=== PATIENT | female | born 1955 | race African-American/Black ===

== ENCOUNTER 2016-10-05 11:56 | Emergency (ER) | payer MEDICARE, MEDICAID ==
[~2016-10-05] VITALS: Ht 162.6 cm; Wt 79.0 kg
[2016-10-05] MEDS ORDERED: HYDR-523 PO (12:09)
[2016-10-05] MEDS ORDERED: INSULIN (12:09)
[2016-10-05] MEDS ORDERED: METF500T4 PO (12:09)
[2016-10-05] MEDS ORDERED: CYM20 PO (12:09)
[2016-10-05] MEDS ORDERED: HYDROCODONE/ACETAMINOPHEN 5/325MG TABLET PO ONE (14:30)
[2016-10-05 17:09] VITALS: BP 155/73
== END 2016-10-05 17:13 | disposition home or self-care (01) ==
LOC: ER 13:00
DX: S42.292A Other displaced fracture of upper end of left humerus, initial encounter for closed fracture (principal); H54.0 Blindness, both eyes; I10 Essential (primary) hypertension; E11.9 Type 2 diabetes mellitus without complications; Z98.84 Bariatric surgery status; Z79.4 Long term (current) use of insulin; W01.0XXA Fall on same level from slipping, tripping and stumbling without subsequent striking against object, initial encounter; Y93.89 Activity, other specified; Y99.8 Other external cause status; Y92.89 Other specified places as the place of occurrence of the external cause
CPT/HCPCS: 73030; 73060; 73080; 99284; A4565

== ENCOUNTER 2017-01-12 16:56 | Inpatient (IN) | payer MEDICARE, MEDICAID ==
[~2017-01-12] VITALS: Ht 165.1 cm; Wt 66.7 kg
[~2017-01-12 16:56] MED LIST: CYM20 PO; HYDR-523 PO; INSULIN; METF500T4 PO
[2017-01-12] MEDS ORDERED: SODIUM CHLORIDE 0.9% 1,000 ML IV ONE (17:38)
[2017-01-12 18:03] LABS: BASOPHILS % 0.2 % (0.0-2.0); EOSINOPHILS % 0.2 % (0.0-5.0); HEMATOCRIT. 38.2 % (36.0-48.0); HEMOGLOBIN. 12.8 g/dL (12.0-16.0); LYMPHOCYTES % 14.8 % (20.0-50.0); MEAN CORPUSCULAR HEMOGLOBIN 28.4 pg (28.0-32.0); MEAN CORPUSCULAR VOLUME 84.8 fL (81.0-99.0); MONOCYTES % 3.3 % (2.0-8.0); NEUTROPHILS % 81.5 % (40.0-76.0); PLATELET 452 x1000/uL (130-400); RED CELL DISTRIBUTION WIDTH 13.8 % (11.6-14.6)
[2017-01-12 18:10] LABS: PROTHROMBIN TIME 10.4 sec
[2017-01-12 18:20] LABS: BETA HYDROXYBUTYRATE 0.3 mMol/L (0.0-0.3); CARBON DIOXIDE 26 mEq/L (21-32); CHLORIDE 91 mEq/L (98-107); TROPONIN I 0.13 ng/mL (0.00-0.04)
[2017-01-12] MEDS ORDERED: ASPIRIN 81MG TABLET PO ONE (18:45)
[2017-01-12] MEDS ORDERED: POTASSIUM CHLORIDE 20MEQ TABLET SR PO ONE (18:45)
[2017-01-12] MEDS ORDERED: HYDROCODONE/ACETAMINOPHEN 5/325MG TABLET PO ONE (19:00)
[2017-01-12] MEDS ORDERED: POTASSIUM CHLORIDE 20MEQ TABLET SR PO NR (22:00)
[2017-01-12] MEDS ORDERED: ZOLPIDEM TARTRATE 5MG TABLET PO PRN (22:00)
[2017-01-12] MEDS ORDERED: DEXTROSE 50% WATER 50ML SYRINGE IV PRN (22:00)
[2017-01-12] MEDS: HYDROCODONE/ACETAMINOPHEN 10/325MG TABLET PO PRN (22:17)
[2017-01-12] MEDS: SODIUM CHLORIDE 0.9% 1,000 ML IV SCH (22:18)
[2017-01-12] MEDS ORDERED: IBUP100O15 PO (22:36)
[2017-01-12] MEDS ORDERED: INSULIN LISPRO 100 UNITS/ML SUBCUT NR (23:00)
[2017-01-12 23:31] VITALS: BP 155/103
[2017-01-13] VITALS: BP 132/65
[2017-01-13] MEDS ORDERED: ZOLPIDEM TARTRATE 5MG TABLET PO PRN ×2 (01:15→21:00)
[2017-01-13] MEDS: HYDROCODONE/ACETAMINOPHEN 10/325MG TABLET PO PRN ×5 (01:29→23:34)
[2017-01-13] MEDS ORDERED: ZOLPIDEM TARTRATE 5MG TABLET PO NR (01:30)
[2017-01-13 04:00] VITALS: BP 139/62
[2017-01-13] MEDS: BLOOD SUGAR DIAGNOSTIC STRIP TEST SCH ×4 (06:20→21:28)
[2017-01-13 06:36] LABS: BASOPHILS % 0.6 % (0.0-2.0); EOSINOPHILS % 0.6 % (0.0-5.0); HEMATOCRIT. 32.5 % (36.0-48.0); HEMOGLOBIN. 11.1 g/dL (12.0-16.0); LYMPHOCYTES % 29.7 % (20.0-50.0); MEAN CORPUSCULAR VOLUME 84.8 fL (81.0-99.0); MEAN PLATELET VOLUME 7.9 fl (7.4-10.4); MONOCYTES % 6.3 % (2.0-8.0); NEUTROPHILS % 62.8 % (40.0-76.0); PLATELET 405 x1000/uL (130-400); RED BLOOD CELL COUNT 3.83 mill/uL (4.2-5.4); RED CELL DISTRIBUTION WIDTH 13.6 % (11.6-14.6)
[2017-01-13 07:13] LABS: TROPONIN I 0.11 ng/mL (0.00-0.04)
[2017-01-13] MEDS: INSULIN LISPRO 100 UNITS/ML SUBCUT SCH ×4 (07:50→21:31)
[2017-01-13 08:00] VITALS: BP 142/69
[2017-01-13] MEDS: POTASSIUM CHLORIDE 20MEQ TABLET SR PO SCH ×2 (10:20→18:11)
[2017-01-13] MEDS: LOSARTAN POTASSIUM 100 MG TABLET PO SCH (10:20)
[2017-01-13] MEDS: DULOXETINE HCL 60MG DR CAPSULE PO SCH (10:21)
[2017-01-13] MEDS: AMLODIPINE 10MG TABLET PO SCH (10:21)
[2017-01-13 12:00] VITALS: BP 124/81
[2017-01-13] MEDS: MECLIZINE 25MG TABLET PO SCH ×2 (15:28→21:30)
[2017-01-13 16:00] VITALS: BP 102/57
[2017-01-13] MEDS: SODIUM CHLORIDE 0.9% 1,000 ML IV SCH (18:00)
[2017-01-13 20:00] VITALS: BP 103/59
[2017-01-13 21:05] LABS: VITAMIN B12 SERUM 777 pg/mL (211-911)
[2017-01-13] MEDS: INSULIN DETEMIR UD 100 UNITS/ML SYR SUBCUT SCH (21:32)
[2017-01-14] VITALS: BP 103/61
[2017-01-14 04:00] VITALS: BP 130/66
[2017-01-14] MEDS: MECLIZINE 25MG TABLET PO SCH ×3 (05:13→21:48)
[2017-01-14] MEDS: HYDROCODONE/ACETAMINOPHEN 10/325MG TABLET PO PRN (05:13)
[2017-01-14] MEDS: BLOOD SUGAR DIAGNOSTIC STRIP TEST SCH ×4 (06:20→21:00)
[2017-01-14 07:01] LABS: CARBON DIOXIDE 22 mEq/L (21-32); CHLORIDE 105 mEq/L (98-107)
[2017-01-14 07:07] LABS: BASOPHILS % 0.8 % (0.0-2.0); EOSINOPHILS % 0.4 % (0.0-5.0); HEMATOCRIT. 30.4 % (36.0-48.0); HEMOGLOBIN. 10.3 g/dL (12.0-16.0); LYMPHOCYTES % 33.2 % (20.0-50.0); MEAN CORPUSCULAR HEMOGLOBIN 28.8 pg (28.0-32.0); MEAN CORPUSCULAR VOLUME 84.9 fL (81.0-99.0); MEAN PLATELET VOLUME 7.8 fl (7.4-10.4); MONOCYTES % 8.1 % (2.0-8.0); NEUTROPHILS % 57.5 % (40.0-76.0); PLATELET 399 x1000/uL (130-400); RED BLOOD CELL COUNT 3.58 mill/uL (4.2-5.4); RED CELL DISTRIBUTION WIDTH 13.9 % (11.6-14.6)
[2017-01-14] MEDS: INSULIN LISPRO 100 UNITS/ML SUBCUT SCH ×4 (07:50→21:48)
[2017-01-14 08:00] VITALS: BP 124/72
[2017-01-14] MEDS: POTASSIUM CHLORIDE 20MEQ TABLET SR PO SCH ×2 (09:14→18:00)
[2017-01-14] MEDS: AMLODIPINE 10MG TABLET PO SCH (09:15)
[2017-01-14] MEDS: DULOXETINE HCL 60MG DR CAPSULE PO SCH (09:15)
[2017-01-14] MEDS: LOSARTAN POTASSIUM 100 MG TABLET PO SCH (09:15)
[2017-01-14] MEDS ORDERED: LORAZEPAM 1MG TABLET PO SCH ×2 (11:00→11:15)
[2017-01-14] MEDS ORDERED: DIATR MEGLU/DIATRIZOATE SOLN 30ML PO SCH (11:15)
[2017-01-14] MEDS ORDERED: LORAZEPAM 2MG/ML CPJ IV SCH (11:35)
[2017-01-14 12:00] VITALS: BP 126/64
[2017-01-14] MEDS: SODIUM CHLORIDE 0.9% 1,000 ML IV SCH (14:00)
[2017-01-14 16:00] VITALS: BP 90/56
[2017-01-14 20:40] VITALS: BP 105/57
[2017-01-14] MEDS: INSULIN DETEMIR UD 100 UNITS/ML SYR SUBCUT SCH (21:47)
[2017-01-14] MEDS: BRIMONIDINE 0.15% EACHEYE SCH (21:48)
[2017-01-14] MEDS: PREDNISOLONE ACETATE 1% OPHTH DROPS 1ML BOTHEYE SCH (21:49)
[2017-01-14] MEDS: DORZOLAM/TIMOLOL 2.23/0.68% OPHTH DROPS 10ML BOTHEYE SCH (21:49)
[2017-01-15 01:07] VITALS: BP 100/62
[2017-01-15] MEDS: HYDROCODONE/ACETAMINOPHEN 10/325MG TABLET PO PRN (01:12)
[2017-01-15 04:00] VITALS: BP 97/48
[2017-01-15] MEDS: MECLIZINE 25MG TABLET PO SCH ×2 (05:16→13:26)
[2017-01-15] MEDS: INSULIN LISPRO 100 UNITS/ML SUBCUT SCH ×2 (06:44→13:24)
[2017-01-15 07:18] LABS: HEMATOCRIT 31.9 % (36.0-48.0); HEMOGLOBIN 10.7 g/dL (12.0-16.0); MEAN CORPUSCULAR HEMOGLOBIN 28.8 pg (28.0-32.0); MEAN CORPUSCULAR VOLUME 85.8 fL (81.0-99.0); PLATELET 401 x1000/uL (130-400); RED BLOOD CELL COUNT 3.72 mill/uL (4.2-5.4); RED CELL DISTRIBUTION WIDTH 14.3 % (11.6-14.6)
[2017-01-15] MEDS: BLOOD SUGAR DIAGNOSTIC STRIP TEST SCH ×2 (07:20→12:20)
[2017-01-15 07:44] LABS: CARBON DIOXIDE 20 mEq/L (21-32); CHLORIDE 107 mEq/L (98-107)
[2017-01-15 07:51] LABS: TROPONIN I 0.07 ng/mL (0.00-0.04)
[2017-01-15 08:05] VITALS: BP 99/61
[2017-01-15] MEDS: DORZOLAM/TIMOLOL 2.23/0.68% OPHTH DROPS 10ML BOTHEYE SCH (08:40)
[2017-01-15] MEDS: BRIMONIDINE 0.15% EACHEYE SCH (08:40)
[2017-01-15] MEDS: PREDNISOLONE ACETATE 1% OPHTH DROPS 1ML BOTHEYE SCH (08:40)
[2017-01-15] MEDS: DULOXETINE HCL 60MG DR CAPSULE PO SCH (08:41)
[2017-01-15] MEDS: POTASSIUM CHLORIDE 20MEQ TABLET SR PO SCH (08:41)
[2017-01-15] MEDS: AMLODIPINE 10MG TABLET PO SCH (08:42)
[2017-01-15] MEDS: LOSARTAN POTASSIUM 100 MG TABLET PO SCH (08:42)
[2017-01-15] MEDS ORDERED: MAGNESIUM/ALUMINUM HYDROXIDE/SIMETHICONE 30ML UDC PO NR (10:54)
[2017-01-15] MEDS ORDERED: POTASSIUM CHLORIDE 20MEQ TABLET SR PO NR (10:54)
[2017-01-15 12:00] VITALS: BP 120/79
== END 2017-01-15 14:00 | disposition home health service (06) | DRG 640 ==
LOC: ER 17:23 → 6WST 18:46 → EDBEDREQ 18:49 → ENRESERV 19:27
PROVIDERS: ADMIT Internal Medicine; ATTEND Internal Medicine
DX: E87.1 Hypo-osmolality and hyponatremia (principal); N17.0 Acute kidney failure with tubular necrosis; E87.6 Hypokalemia; E11.65 Type 2 diabetes mellitus with hyperglycemia; E86.9 Volume depletion, unspecified; H54.0 Blindness, both eyes; I10 Essential (primary) hypertension; R63.4 Abnormal weight loss; W18.30XA Fall on same level, unspecified, initial encounter; R29.6 Repeated falls; Z60.2 Problems related to living alone; R62.7 Adult failure to thrive; H81.10 Benign paroxysmal vertigo, unspecified ear; Z98.84 Bariatric surgery status; Y93.89 Activity, other specified; Y92.89 Other specified places as the place of occurrence of the external cause; Y99.8 Other external cause status; Z68.24 Body mass index [BMI] 24.0-24.9, adult; Z79.84 Long term (current) use of oral hypoglycemic drugs; Z79.4 Long term (current) use of insulin; Z79.899 Other long term (current) drug therapy; E86.0 Dehydration; S09.91XA Unspecified injury of ear, initial encounter
CPT/HCPCS: 36415; 70450; 70551; 71010; 72141; 73030; 74150; 76770; 80048; 80053; 82010; 82040; 82607; 82962; 83036; 83735; 83880; 84443; 84484; 85025; 85027; 85610; 85651; 93005; 93306; 96360; 96361; 97116; 97162; 99291; C1893; J1815; J2060; J7030; J8597; Q9963

== ENCOUNTER 2017-04-02 15:07 | Inpatient (IN) | payer MEDICARE, MEDICAID ==
[~2017-04-02] VITALS: Ht 170.2 cm; Wt 54.4 kg
[~2017-04-02 15:07] MED LIST changes: +IBUP100O19 PO
[2017-04-02] MEDS ORDERED: SODIUM CHLORIDE 0.9% 500 ML IV ONE (15:30)
[2017-04-02 16:11] LABS: PARTIAL THROMBOPLASTIN TIME 27.4 sec (23.4-31.0); PROTHROMBIN TIME 10.5 sec (9.4-11.6)
[2017-04-02 16:12] LABS: BASOPHILS % 0.3 % (0.0-2.0); HEMATOCRIT. 31.7 % (36.0-48.0); HEMOGLOBIN. 10.8 g/dL (12.0-16.0); LYMPHOCYTES % 11.2 % (20.0-50.0); MEAN CORPUSCULAR VOLUME 87.9 fL (81.0-99.0); MEAN PLATELET VOLUME 7.8 fl (7.4-10.4); NEUTROPHILS % 84.5 % (40.0-76.0); PLATELET 514 x1000/uL (130-400); RED BLOOD CELL COUNT 3.61 mill/uL (4.2-5.4); RED CELL DISTRIBUTION WIDTH 15.9 % (11.6-14.6)
[2017-04-02 16:16] LABS: CARBON DIOXIDE 15 mEq/L (21-32); CHLORIDE 97 mEq/L (98-107)
[2017-04-02 16:18] LABS: CREATINE KINASE MB FRACTION 6.7 ng/mL (0.5-3.6); TROPONIN I 0.07 ng/mL (0.00-0.04)
[2017-04-02] MEDS ORDERED: POTASSIUM CHLORIDE 20MEQ/PACKET PO ONE (17:30)
[2017-04-02] MEDS ORDERED: KCL 10MEQ/50ML PREMIX 50 ML IV ONE (17:30)
[2017-04-02 18:00] LABS: CREATINE KINASE 192 IU/L (26-192)
[2017-04-02 20:45] VITALS: BP 137/65
[2017-04-02 22:00] VITALS: BP 137/65
[2017-04-02] MEDS ORDERED: ACETAMINOPHEN 325MG TABLET PO PRN (23:15)
[2017-04-02] MEDS ORDERED: DEXTROSE 50% WATER 50ML SYRINGE IV PRN (23:15)
[2017-04-02] MEDS: INSULIN LISPRO 100 UNITS/ML SUBCUT SCH (23:59)
[2017-04-03] VITALS: BP 133/58
[2017-04-03] MEDS: SODIUM CHLORIDE 0.45% 1,000 ML IV SCH ×2 (00:22→15:55)
[2017-04-03 04:00] VITALS: BP 137/56
[2017-04-03] MEDS: BLOOD SUGAR DIAGNOSTIC STRIP TEST SCH ×4 (06:56→20:37)
[2017-04-03 08:12] VITALS: BP 125/56
[2017-04-03] MEDS: ENOXAPARIN 30MG/0.3ML SYR SUBCUT SCH (08:38)
[2017-04-03] MEDS: INSULIN LISPRO 100 UNITS/ML SUBCUT SCH ×4 (08:40→20:37)
[2017-04-03 09:01] LABS: BASOPHILS % 0.4 % (0.0-2.0); HEMATOCRIT. 32.5 % (36.0-48.0); HEMOGLOBIN. 10.8 g/dL (12.0-16.0); LYMPHOCYTES % 15.7 % (20.0-50.0); MEAN CORPUSCULAR HEMOGLOBIN 29.6 pg (28.0-32.0); MEAN CORPUSCULAR VOLUME 89.2 fL (81.0-99.0); MEAN PLATELET VOLUME 8.1 fl (7.4-10.4); MONOCYTES % 5.2 % (2.0-8.0); NEUTROPHILS % 78.7 % (40.0-76.0); PLATELET 444 x1000/uL (130-400); RED BLOOD CELL COUNT 3.64 mill/uL (4.2-5.4); RED CELL DISTRIBUTION WIDTH 16.6 % (11.6-14.6)
[2017-04-03] MEDS ORDERED: ACETAMINOPHEN 325MG TABLET PO PRN (11:30)
[2017-04-03 12:00] VITALS: BP 113/49
[2017-04-03] MEDS: POTASSIUM CHLORIDE 20MEQ TABLET SR PO SCH ×2 (13:54→17:09)
[2017-04-03] MEDS: HYDROCODONE/ACETAMINOPHEN 10/325MG TABLET PO PRN ×2 (14:05→20:36)
[2017-04-03 16:00] VITALS: BP 90/48
[2017-04-03 20:00] VITALS: BP 119/52
[2017-04-04] VITALS: BP 137/64
[2017-04-04 04:00] VITALS: BP 111/50
[2017-04-04] MEDS: BLOOD SUGAR DIAGNOSTIC STRIP TEST SCH ×4 (06:40→21:48)
[2017-04-04 08:00] VITALS: BP 127/56
[2017-04-04 08:18] LABS: CLARITY URINE CLOUDY (CLEAR); COLOR URINE DARK YELLOW (YELLOW); GLUCOSE URINE NEGATIVE (NEGATIVE); KETONES URINE 1+ (NEGATIVE); LEUKOCYTE ESTERASE URINE 2+ (NEGATIVE); NITRITE URINE NEGATIVE (NEGATIVE); OCCULT BLOOD URINE 1+ (NEGATIVE); PROTEIN URINE 2+ (NEGATIVE); SPECIFIC GRAVITY URINE 1.021 (1.005-1.030); UROBILINOGEN URINE 0.2 E.U./dL (0.2-1.0)
[2017-04-04] MEDS: SODIUM CHLORIDE 0.45% 1,000 ML IV SCH (08:35)
[2017-04-04] MEDS: ENOXAPARIN 30MG/0.3ML SYR SUBCUT SCH (08:37)
[2017-04-04] MEDS: INSULIN LISPRO 100 UNITS/ML SUBCUT SCH ×4 (08:43→21:00)
[2017-04-04 08:59] LABS: *AMPHETAMINES SCREEN URINE NEGATIVE (NEGATIVE); *BARBITURATES SCREEN URINE NEGATIVE (NEGATIVE); *BENZODIAZEPINES SCREEN URINE NEGATIVE (NEGATIVE); *COCAINE SCREEN URINE NEGATIVE (NEGATIVE); CANNABINOID URINE SCREEN NEGATIVE (NEGATIVE); METHADONE URINE SCREEN NEGATIVE (NEGATIVE); OPIATES URINE SCREEN PRESUMTIVE POSITIVE (NEGATIVE); PHENCYCLIDINE URINE SCREEN NEGATIVE (NEGATIVE)
[2017-04-04 12:00] VITALS: BP 127/61
[2017-04-04] MEDS: HYDROCODONE/ACETAMINOPHEN 10/325MG TABLET PO PRN ×2 (13:12→21:52)
[2017-04-04] MEDS ORDERED: POTASSIUM CHLORIDE 20MEQ TABLET SR PO SCH (13:15)
[2017-04-04] MEDS ORDERED: LEVOFLOXACIN 500MG PREMIX 100 ML IV SCH (14:00)
[2017-04-04] MEDS: POTASSIUM CHLORIDE 20MEQ TABLET SR PO SCH ×3 (14:08→21:48)
[2017-04-04 16:00] VITALS: BP 104/43
[2017-04-04 20:00] VITALS: BP 113/59
[2017-04-05] VITALS: BP 130/61
[2017-04-05] MEDS: POTASSIUM CHLORIDE 20MEQ TABLET SR PO SCH (01:36)
[2017-04-05 04:00] VITALS: BP 134/70
[2017-04-05] MEDS: SODIUM CHLORIDE 0.45% 1,000 ML IV SCH ×2 (05:42→17:55)
[2017-04-05] MEDS: BLOOD SUGAR DIAGNOSTIC STRIP TEST SCH ×4 (07:28→22:21)
[2017-04-05] MEDS: INSULIN LISPRO 100 UNITS/ML SUBCUT SCH ×4 (07:29→22:20)
[2017-04-05 08:00] VITALS: BP 107/60
[2017-04-05] MEDS: ENOXAPARIN 30MG/0.3ML SYR SUBCUT SCH (08:44)
[2017-04-05 10:21] LABS: CARBON DIOXIDE 21 mEq/L (21-32); CHLORIDE 106 mEq/L (98-107)
[2017-04-05 12:00] VITALS: BP 132/68
[2017-04-05] MEDS ORDERED: POTASSIUM CHLORIDE 20MEQ TABLET SR PO SCH ×2 (12:35→17:00)
[2017-04-05 16:00] VITALS: BP 135/60
[2017-04-05] MEDS: LEVOFLOXACIN 500MG PREMIX 100 ML IV SCH (16:27)
[2017-04-05] MEDS: HYDROCODONE/ACETAMINOPHEN 10/325MG TABLET PO PRN ×2 (16:28→23:40)
[2017-04-05 20:00] VITALS: BP 125/65
[2017-04-06] VITALS: BP 147/87
[2017-04-06 04:00] VITALS: BP 128/86
[2017-04-06] MEDS: BLOOD SUGAR DIAGNOSTIC STRIP TEST SCH ×4 (07:12→20:10)
[2017-04-06 07:26] LABS: BASOPHILS % 0.9 % (0.0-2.0); EOSINOPHILS % 0.6 % (0.0-5.0); HEMATOCRIT. 27.3 % (36.0-48.0); HEMOGLOBIN. 9.3 g/dL (12.0-16.0); LYMPHOCYTES % 42.3 % (20.0-50.0); MEAN CORPUSCULAR HEMOGLOBIN 30.2 pg (28.0-32.0); MEAN CORPUSCULAR VOLUME 88.6 fL (81.0-99.0); MEAN PLATELET VOLUME 7.5 fl (7.4-10.4); MONOCYTES % 6.5 % (2.0-8.0); NEUTROPHILS % 49.7 % (40.0-76.0); PLATELET 388 x1000/uL (130-400); RED BLOOD CELL COUNT 3.08 mill/uL (4.2-5.4)
[2017-04-06 07:44] LABS: CARBON DIOXIDE 19 mEq/L (21-32); CHLORIDE 110 mEq/L (98-107)
[2017-04-06 08:00] VITALS: BP 130/64
[2017-04-06] MEDS: INSULIN LISPRO 100 UNITS/ML SUBCUT SCH ×4 (08:17→20:14)
[2017-04-06] MEDS: ENOXAPARIN 40MG/0.4ML SYR SUBCUT SCH (08:17)
[2017-04-06] MEDS ORDERED: POTASSIUM CHLORIDE 20MEQ TABLET SR PO SCH ×3 (09:45→17:00)
[2017-04-06] MEDS: HYDROCODONE/ACETAMINOPHEN 10/325MG TABLET PO PRN ×2 (10:43→20:13)
[2017-04-06] MEDS: SODIUM CHLORIDE 0.45% 1,000 ML IV SCH (10:45)
[2017-04-06 12:00] VITALS: BP 110/63
[2017-04-06] MEDS: LACTULOSE 20G/30ML UDC PO SCH ×2 (13:41→16:50)
[2017-04-06 16:00] VITALS: BP 130/69
[2017-04-06] MEDS: LEVOFLOXACIN 500MG PREMIX 100 ML IV SCH (16:50)
[2017-04-06] MEDS: DOCUSATE SODIUM 100MG CAPSULE PO SCH (16:51)
[2017-04-06 20:00] VITALS: BP 127/69
[2017-04-06] MEDS ORDERED: POLYETHYLENE GLYCOL 3350 (17GM) 1 DOSE PACK PO SCH (21:00)
[2017-04-07] VITALS: BP 144/64
[2017-04-07] MEDS: SODIUM CHLORIDE 0.45% 1,000 ML IV SCH (03:42)
[2017-04-07 04:00] VITALS: BP 147/63
[2017-04-07] MEDS: BLOOD SUGAR DIAGNOSTIC STRIP TEST SCH ×3 (07:40→17:32)
[2017-04-07 08:00] VITALS: BP 120/58
[2017-04-07] MEDS: INSULIN LISPRO 100 UNITS/ML SUBCUT SCH ×3 (08:10→18:25)
[2017-04-07] MEDS: ENOXAPARIN 40MG/0.4ML SYR SUBCUT SCH (08:33)
[2017-04-07] MEDS: HYDROCODONE/ACETAMINOPHEN 10/325MG TABLET PO PRN ×2 (08:34→14:40)
[2017-04-07] MEDS: DOCUSATE SODIUM 100MG CAPSULE PO SCH ×2 (08:37→16:45)
[2017-04-07 12:00] VITALS: BP 138/69
[2017-04-07 12:35] LABS: BASOPHILS % 0.8 % (0.0-2.0); EOSINOPHILS % 0.8 % (0.0-5.0); HEMATOCRIT. 28.8 % (36.0-48.0); HEMOGLOBIN. 9.5 g/dL (12.0-16.0); LYMPHOCYTES % 40.5 % (20.0-50.0); MEAN CORPUSCULAR HEMOGLOBIN 29.6 pg (28.0-32.0); MEAN CORPUSCULAR VOLUME 89.8 fL (81.0-99.0); MEAN PLATELET VOLUME 7.7 fl (7.4-10.4); MONOCYTES % 6.8 % (2.0-8.0); NEUTROPHILS % 51.1 % (40.0-76.0); PLATELET 374 x1000/uL (130-400); RED BLOOD CELL COUNT 3.21 mill/uL (4.2-5.4); RED CELL DISTRIBUTION WIDTH 16.1 % (11.6-14.6)
[2017-04-07 12:53] LABS: CARBON DIOXIDE 20 mEq/L (21-32); CHLORIDE 109 mEq/L (98-107)
[2017-04-07 16:00] VITALS: BP 150/66
[2017-04-07] MEDS: LEVOFLOXACIN 500MG PREMIX 100 ML IV SCH (16:44)
[2017-04-07 17:40] VITALS: BP 150/66
[2017-04-08] MEDS ORDERED: LEVOFLOXACIN 500MG TABLET PO SCH (11:00)
== END 2017-04-07 18:50 | DRG 871 ==
LOC: ER 15:07 → 7WST 18:04 → ENRESERV 19:11
PROVIDERS: ADMIT Internal Medicine; ATTEND Internal Medicine
DX: A41.9 Sepsis, unspecified organism (principal); J15.1 Pneumonia due to Pseudomonas; N17.9 Acute kidney failure, unspecified; E11.649 Type 2 diabetes mellitus with hypoglycemia without coma; E86.0 Dehydration; J44.0 Chronic obstructive pulmonary disease with (acute) lower respiratory infection; N39.0 Urinary tract infection, site not specified; Z68.1 Body mass index [BMI] 19.9 or less, adult; G62.9 Polyneuropathy, unspecified; E87.6 Hypokalemia; B96.20 Unspecified Escherichia coli [E. coli] as the cause of diseases classified elsewhere; D64.9 Anemia, unspecified; E66.9 Obesity, unspecified; F32.9 Major depressive disorder, single episode, unspecified; F41.9 Anxiety disorder, unspecified; G89.4 Chronic pain syndrome; H40.9 Unspecified glaucoma; H54.8 Legal blindness, as defined in USA; I10 Essential (primary) hypertension; K59.00 Constipation, unspecified; M48.06 Spinal stenosis, lumbar region; R29.6 Repeated falls; R32 Unspecified urinary incontinence; M47.9 Spondylosis, unspecified; R26.9 Unspecified abnormalities of gait and mobility; R53.81 Other malaise; Z98.1 Arthrodesis status; Z79.891 Long term (current) use of opiate analgesic
CPT/HCPCS: 36415; 70450; 71010; 72141; 72146; 72148; 80048; 80053; 80305; 81001; 82550; 82553; 82962; 83036; 83735; 83880; 84484; 85025; 85610; 85730; 87077; 87086; 87186; 93005; 96365; 97110; 97116; 97162; 97530; 99285; J1650; J1815; J1956; J3480; J7040

== ENCOUNTER 2017-04-07 20:23 | Inpatient (IN) | payer MEDICARE, MEDICAID ==
[~2017-04-07] VITALS: Ht 170.2 cm; Wt 65.5 kg
[2017-04-07 20:00] VITALS: BP 154/62
[2017-04-07] MEDS ORDERED: DEXTROSE 50% WATER 50ML SYRINGE IV PRN (21:00)
[2017-04-07] MEDS ORDERED: ACETAMINOPHEN 500MG TABLET PO PRN (21:00)
[2017-04-07] MEDS: BLOOD SUGAR DIAGNOSTIC STRIP TEST SCH (21:00)
[2017-04-07] MEDS: HYDROCODONE/ACETAMINOPHEN 10/325MG TABLET PO PRN (21:22)
[2017-04-07] MEDS: POLYETHYLENE GLYCOL 3350 (17GM) 1 DOSE PACK PO SCH (21:30)
[2017-04-07] MEDS: SODIUM CHLORIDE 0.45% 1,000 ML IV SCH (22:18)
[2017-04-07] MEDS: INSULIN LISPRO 100 UNITS/ML SUBCUT SCH (22:41)
[2017-04-08] MEDS: HYDROCODONE/ACETAMINOPHEN 10/325MG TABLET PO PRN ×4 (03:43→22:56)
[2017-04-08] MEDS: BLOOD SUGAR DIAGNOSTIC STRIP TEST SCH ×4 (06:08→21:02)
[2017-04-08] MEDS: INSULIN LISPRO 100 UNITS/ML SUBCUT SCH ×4 (06:36→21:00)
[2017-04-08 08:00] VITALS: BP 166/68
[2017-04-08 08:09] LABS: BASOPHILS % 0.9 % (0.0-2.0); EOSINOPHILS % 0.9 % (0.0-5.0); HEMATOCRIT. 28.1 % (36.0-48.0); HEMOGLOBIN. 9.5 g/dL (12.0-16.0); LYMPHOCYTES % 42.8 % (20.0-50.0); MEAN CORPUSCULAR HEMOGLOBIN 29.9 pg (28.0-32.0); MEAN CORPUSCULAR VOLUME 88.1 fL (81.0-99.0); MEAN PLATELET VOLUME 7.6 fl (7.4-10.4); MONOCYTES % 7.8 % (2.0-8.0); NEUTROPHILS % 47.6 % (40.0-76.0); PLATELET 345 x1000/uL (130-400); RED BLOOD CELL COUNT 3.19 mill/uL (4.2-5.4); RED CELL DISTRIBUTION WIDTH 15.9 % (11.6-14.6)
[2017-04-08 08:31] LABS: CARBON DIOXIDE 19 mEq/L (21-32); CHLORIDE 112 mEq/L (98-107)
[2017-04-08 08:34] LABS: PREALBUMIN 16.3 mg/dL (20.0-40.0)
[2017-04-08] MEDS: ENOXAPARIN 40MG/0.4ML SYR SUBCUT SCH (08:35)
[2017-04-08] MEDS: DOCUSATE SODIUM 100MG CAPSULE PO SCH ×2 (08:35→17:15)
[2017-04-08] MEDS ORDERED: ENOXAPARIN 40MG/0.4ML SYR SUBCUT SCH (09:00)
[2017-04-08] MEDS ORDERED: POTASSIUM CHLORIDE 20MEQ TABLET SR PO ONE (09:30)
[2017-04-08 10:00] VITALS: BP 134/74
[2017-04-08] MEDS: LACTULOSE 20G/30ML UDC PO SCH ×3 (10:04→17:00)
[2017-04-08] MEDS: POTASSIUM CHLORIDE 20MEQ TABLET SR PO SCH (10:04)
[2017-04-08] MEDS: LIDOCAINE 5% PATCH TOP SCH (10:05)
[2017-04-08] MEDS: PANTOPRAZOLE 40MG DR TABLET PO SCH (10:18)
[2017-04-08] MEDS: LEVOFLOXACIN 500MG TABLET PO SCH (10:18)
[2017-04-08 12:20] VITALS: BP 145/73
[2017-04-08] MEDS: OXYCODONE HCL 5MG TABLET PO SCH ×2 (12:23→18:07)
[2017-04-08] MEDS: SODIUM CHLORIDE 0.45% 1,000 ML IV SCH (12:41)
[2017-04-08 16:50] VITALS: BP 152/71
[2017-04-08 18:05] VITALS: BP 147/72
[2017-04-08 20:00] VITALS: BP 143/74
[2017-04-08] MEDS: POLYETHYLENE GLYCOL 3350 (17GM) 1 DOSE PACK PO SCH (21:02)
[2017-04-09] MEDS: OXYCODONE HCL 5MG TABLET PO SCH ×5 (01:38→23:02)
[2017-04-09] MEDS: PANTOPRAZOLE 40MG DR TABLET PO SCH (06:26)
[2017-04-09] MEDS: BLOOD SUGAR DIAGNOSTIC STRIP TEST SCH ×3 (06:27→21:50)
[2017-04-09] MEDS: SODIUM CHLORIDE 0.45% 1,000 ML IV SCH ×2 (06:27→23:03)
[2017-04-09 08:00] VITALS: BP 113/71
[2017-04-09] MEDS: POTASSIUM CHLORIDE 20MEQ TABLET SR PO SCH (10:21)
[2017-04-09] MEDS: DOCUSATE SODIUM 100MG CAPSULE PO SCH ×2 (10:21→17:47)
[2017-04-09] MEDS: LIDOCAINE 5% PATCH TOP SCH (10:22)
[2017-04-09] MEDS: ENOXAPARIN 40MG/0.4ML SYR SUBCUT SCH (10:22)
[2017-04-09] MEDS: LEVOFLOXACIN 500MG TABLET PO SCH (10:22)
[2017-04-09] MEDS: INSULIN LISPRO 100 UNITS/ML SUBCUT SCH ×2 (17:53→22:10)
[2017-04-09 19:00] VITALS: BP 128/59
[2017-04-09] MEDS: POLYETHYLENE GLYCOL 3350 (17GM) 1 DOSE PACK PO SCH (21:00)
[2017-04-10] MEDS: OXYCODONE HCL 5MG TABLET PO SCH ×3 (06:00→18:07)
[2017-04-10] MEDS: BLOOD SUGAR DIAGNOSTIC STRIP TEST SCH ×4 (06:32→21:43)
[2017-04-10] MEDS: INSULIN LISPRO 100 UNITS/ML SUBCUT SCH ×4 (06:33→21:00)
[2017-04-10] MEDS: SODIUM CHLORIDE 0.45% 1,000 ML IV SCH (06:56)
[2017-04-10] MEDS: PANTOPRAZOLE 40MG DR TABLET PO SCH (06:56)
[2017-04-10 07:48] LABS: BASOPHILS % 0.9 % (0.0-2.0); EOSINOPHILS % 1.4 % (0.0-5.0); HEMATOCRIT. 26.2 % (36.0-48.0); HEMOGLOBIN. 8.8 g/dL (12.0-16.0); LYMPHOCYTES % 40.8 % (20.0-50.0); MEAN CORPUSCULAR HEMOGLOBIN 29.8 pg (28.0-32.0); MEAN PLATELET VOLUME 8.2 fl (7.4-10.4); MONOCYTES % 9.2 % (2.0-8.0); NEUTROPHILS % 47.7 % (40.0-76.0); PLATELET 313 x1000/uL (130-400); RED BLOOD CELL COUNT 2.94 mill/uL (4.2-5.4); RED CELL DISTRIBUTION WIDTH 15.7 % (11.6-14.6)
[2017-04-10 08:00] VITALS: BP 133/68
[2017-04-10 08:11] LABS: CARBON DIOXIDE 22 mEq/L (21-32); CHLORIDE 116 mEq/L (98-107); HDL CHOLESTEROL 51 mg/dL (40-59); LDL CHOLESTEROL 76 mg/dL (5-100); PHOSPHORUS 2.5 mg/dL (2.5-4.9); TOTAL IRON BINDING CAPACITY 155 ug/dL (250-450)
[2017-04-10 08:39] LABS: FOLIC ACID (FOLATE) SERUM 4.1 ng/mL (>5.38)
[2017-04-10] MEDS: POTASSIUM CHLORIDE 20MEQ TABLET SR PO SCH (09:25)
[2017-04-10] MEDS: DOCUSATE SODIUM 100MG CAPSULE PO SCH ×2 (09:25→18:04)
[2017-04-10] MEDS: ENOXAPARIN 40MG/0.4ML SYR SUBCUT SCH (09:26)
[2017-04-10] MEDS: LIDOCAINE 5% PATCH TOP SCH (09:27)
[2017-04-10] MEDS: HYDROCODONE/ACETAMINOPHEN 10/325MG TABLET PO PRN (09:29)
[2017-04-10] MEDS: LEVOFLOXACIN 500MG TABLET PO SCH (11:37)
[2017-04-10 20:00] VITALS: BP 167/70
[2017-04-10] MEDS: LACTULOSE 20G/30ML UDC PO SCH ×2 (20:15→23:00)
[2017-04-10] MEDS: ZOLPIDEM TARTRATE 5MG TABLET PO PRN (21:39)
[2017-04-10] MEDS: POLYETHYLENE GLYCOL 3350 (17GM) 1 DOSE PACK PO SCH (21:40)
[2017-04-10] MEDS: MAGNESIUM OXIDE 400MG TABLET PO SCH (21:42)
[2017-04-11] MEDS: OXYCODONE HCL 5MG TABLET PO SCH ×5 (00:39→23:35)
[2017-04-11 04:34] LABS: CLARITY URINE CLOUDY (CLEAR); COLOR URINE YELLOW (YELLOW); GLUCOSE URINE NEGATIVE (NEGATIVE); KETONES URINE NEGATIVE (NEGATIVE); LEUKOCYTE ESTERASE URINE 1+ (NEGATIVE); NITRITE URINE NEGATIVE (NEGATIVE); OCCULT BLOOD URINE NEGATIVE (NEGATIVE); PROTEIN URINE NEGATIVE (NEGATIVE); SPECIFIC GRAVITY URINE 1.007 (1.005-1.030); UROBILINOGEN URINE 0.2 E.U./dL (0.2-1.0)
[2017-04-11] MEDS: PANTOPRAZOLE 40MG DR TABLET PO SCH (06:03)
[2017-04-11] MEDS: BLOOD SUGAR DIAGNOSTIC STRIP TEST SCH ×4 (06:06→21:06)
[2017-04-11] MEDS: INSULIN LISPRO 100 UNITS/ML SUBCUT SCH ×4 (06:07→21:09)
[2017-04-11 06:30] LABS: EOSINOPHILS % 1.4 % (0.0-5.0); HEMATOCRIT. 25.7 % (36.0-48.0); HEMOGLOBIN. 8.4 g/dL (12.0-16.0); LYMPHOCYTES % 43.2 % (20.0-50.0); MEAN CORPUSCULAR HEMOGLOBIN 29.6 pg (28.0-32.0); MEAN CORPUSCULAR VOLUME 90.3 fL (81.0-99.0); MEAN PLATELET VOLUME 7.9 fl (7.4-10.4); MONOCYTES % 9.8 % (2.0-8.0); NEUTROPHILS % 44.6 % (40.0-76.0); PLATELET 295 x1000/uL (130-400); RED BLOOD CELL COUNT 2.85 mill/uL (4.2-5.4); RED CELL DISTRIBUTION WIDTH 16.1 % (11.6-14.6)
[2017-04-11 08:00] VITALS: BP 131/65
[2017-04-11 08:16] LABS: CARBON DIOXIDE 20 mEq/L (21-32); CHLORIDE 113 mEq/L (98-107)
[2017-04-11] MEDS: DOCUSATE SODIUM 100MG CAPSULE PO SCH ×2 (09:00→16:50)
[2017-04-11] MEDS: LACTULOSE 20G/30ML UDC PO SCH (09:00)
[2017-04-11] MEDS: MAGNESIUM OXIDE 400MG TABLET PO SCH ×2 (09:41→21:05)
[2017-04-11] MEDS: CYANOCOBALAMIN 1000MCG/ML VIAL IM SCH (09:41)
[2017-04-11] MEDS: ENOXAPARIN 40MG/0.4ML SYR SUBCUT SCH (09:42)
[2017-04-11] MEDS: HYDROCODONE/ACETAMINOPHEN 10/325MG TABLET PO PRN (09:42)
[2017-04-11] MEDS: POTASSIUM CHLORIDE 20MEQ TABLET SR PO SCH (09:43)
[2017-04-11] MEDS: SODIUM CHLORIDE 0.45% 1,000 ML IV SCH (09:45)
[2017-04-11] MEDS: LIDOCAINE 5% PATCH TOP SCH (09:46)
[2017-04-11] MEDS: LEVOFLOXACIN 500MG TABLET PO SCH (12:10)
[2017-04-11 20:00] VITALS: BP 132/62
[2017-04-11] MEDS: POLYETHYLENE GLYCOL 3350 (17GM) 1 DOSE PACK PO SCH (21:00)
[2017-04-11] MEDS: ZOLPIDEM TARTRATE 5MG TABLET PO PRN (21:05)
[2017-04-12] MEDS: SODIUM CHLORIDE 0.45% 1,000 ML IV SCH (01:00)
[2017-04-12] MEDS: OXYCODONE HCL 5MG TABLET PO SCH ×3 (05:36→17:44)
[2017-04-12] MEDS: PANTOPRAZOLE 40MG DR TABLET PO SCH (06:03)
[2017-04-12] MEDS: BLOOD SUGAR DIAGNOSTIC STRIP TEST SCH ×4 (06:03→22:44)
[2017-04-12] MEDS: INSULIN LISPRO 100 UNITS/ML SUBCUT SCH ×4 (06:04→23:02)
[2017-04-12 08:00] VITALS: BP 139/60
[2017-04-12] MEDS: CYANOCOBALAMIN 1000MCG/ML VIAL IM SCH (08:42)
[2017-04-12] MEDS: MAGNESIUM OXIDE 400MG TABLET PO SCH ×2 (08:42→22:41)
[2017-04-12] MEDS: DOCUSATE SODIUM 100MG CAPSULE PO SCH ×3 (08:42→16:12)
[2017-04-12] MEDS: ENOXAPARIN 40MG/0.4ML SYR SUBCUT SCH (08:42)
[2017-04-12] MEDS: LIDOCAINE 5% PATCH TOP SCH (08:44)
[2017-04-12 11:27] VITALS: BP 156/78
[2017-04-12 13:55] VITALS: BP 162/71
[2017-04-12] MEDS: HYDROCODONE/ACETAMINOPHEN 10/325MG TABLET PO PRN (14:01)
[2017-04-12 17:20] VITALS: BP 146/73
[2017-04-12 20:00] VITALS: BP 169/73
[2017-04-12] MEDS: POLYETHYLENE GLYCOL 3350 (17GM) 1 DOSE PACK PO SCH (21:00)
[2017-04-12] MEDS: ZOLPIDEM TARTRATE 5MG TABLET PO PRN (22:41)
[2017-04-13] MEDS: OXYCODONE HCL 5MG TABLET PO SCH ×3 (00:30→11:34)
[2017-04-13 06:13] LABS: EOSINOPHILS % 1.8 % (0.0-5.0); HEMATOCRIT. 25.4 % (36.0-48.0); HEMOGLOBIN. 8.3 g/dL (12.0-16.0); LYMPHOCYTES % 39.8 % (20.0-50.0); MEAN CORPUSCULAR HEMOGLOBIN 29.6 pg (28.0-32.0); MEAN CORPUSCULAR VOLUME 90.5 fL (81.0-99.0); MEAN PLATELET VOLUME 7.7 fl (7.4-10.4); MONOCYTES % 10.1 % (2.0-8.0); NEUTROPHILS % 47.3 % (40.0-76.0); PLATELET 285 x1000/uL (130-400); RED CELL DISTRIBUTION WIDTH 15.6 % (11.6-14.6)
[2017-04-13] MEDS: BLOOD SUGAR DIAGNOSTIC STRIP TEST SCH ×2 (06:30→11:05)
[2017-04-13] MEDS: PANTOPRAZOLE 40MG DR TABLET PO SCH (06:59)
[2017-04-13 08:00] VITALS: BP 146/75
[2017-04-13 08:02] LABS: CARBON DIOXIDE 21 mEq/L (21-32); CHLORIDE 114 mEq/L (98-107)
[2017-04-13] MEDS: INSULIN LISPRO 100 UNITS/ML SUBCUT SCH ×2 (08:46→12:46)
[2017-04-13] MEDS: MAGNESIUM OXIDE 400MG TABLET PO SCH (08:48)
[2017-04-13] MEDS: DOCUSATE SODIUM 100MG CAPSULE PO SCH (08:48)
[2017-04-13] MEDS: ENOXAPARIN 40MG/0.4ML SYR SUBCUT SCH (08:48)
[2017-04-13] MEDS: CYANOCOBALAMIN 1000MCG/ML VIAL IM SCH (08:48)
[2017-04-13] MEDS: LIDOCAINE 5% PATCH TOP SCH (08:52)
[2017-04-13 09:08] LABS: 25-HYDROXY VITAMIN D3 18 ng/mL (.)
[2017-04-13 11:29] VITALS: BP 172/87
[2017-04-13 13:19] VITALS: BP 156/79
== END 2017-04-13 16:11 | disposition home health service (06) | DRG 552 ==
PROVIDERS: ADMIT Physical Medicine & Rehabilitation Spinal Cord Injury Medicine; ATTEND Internal Medicine
DX: M48.06 Spinal stenosis, lumbar region (principal); E11.42 Type 2 diabetes mellitus with diabetic polyneuropathy; N39.0 Urinary tract infection, site not specified; I10 Essential (primary) hypertension; R29.6 Repeated falls; R32 Unspecified urinary incontinence; Z98.1 Arthrodesis status; R53.81 Other malaise; E53.8 Deficiency of other specified B group vitamins; F06.31 Mood disorder due to known physiological condition with depressive features; K59.00 Constipation, unspecified; H54.8 Legal blindness, as defined in USA; H40.9 Unspecified glaucoma; G89.4 Chronic pain syndrome; E87.6 Hypokalemia; D64.9 Anemia, unspecified; B96.20 Unspecified Escherichia coli [E. coli] as the cause of diseases classified elsewhere; R26.9 Unspecified abnormalities of gait and mobility; M47.896 Other spondylosis, lumbar region; F09 Unspecified mental disorder due to known physiological condition; F41.8 Other specified anxiety disorders; Z79.899 Other long term (current) drug therapy
CPT/HCPCS: 36415; 80048; 80053; 80061; 81001; 82306; 82607; 82728; 82746; 82962; 83036; 83540; 83550; 83735; 84100; 84134; 84443; 84630; 85025; 87086; 92523; 93970; 97110; 97112; 97116; 97162; 97167; 97530; 97535; C1893; J1650; J1815; J3420